=== PATIENT | male | born 1955 | race Caucasian/White ===

== ENCOUNTER 2025-04-07 13:09 | Outpatient (CLI) | payer MEDICARE, SELFPAY ==
--- NOTE | ~2025-04-07 | US_ITS ---
EXAMINATION: US abdomen complete, 04/07/2025 13:12 CDT HISTORY: thrombocytopenia COMPARISON: None Technique: Mendoza-scale and color Doppler images were obtained. Findings: LIVER: Lliver contours intact, no lesions. Normal echogenicity. . GALLBLADDER/BILIARY: Gallbladder polyp measures 4 x 5 mm, no cholelithiasis or pericholecystic fluid. CBD normal. [employer] sign negative. PANCREAS: Pancreas limited by bowel gas. SPLEEN: Unremarkable, no splenomegaly. KIDNEYS: The renal cortices are intact with no solid masses or calculi, no hydronephrosis. Right Kidney: Right kidney 11.0 x 3.8 x 4.2 cm. Right kidney superior pole simple cyst 4.8 x 3.8 cm. Left Kidney: Left kidney 12.6 x 3.2 x 4.3 cm. Left kidney superior pole simple cyst 1.4 x 1.1 cm. AORTA: Normal caliber aorta. IVC: Unremarkable. FREE FLUID: None. Impression: 1. Gallbladder polyp. 2. Simple appearing bilateral renal cysts Reviewed, dictated and finalized at location P. Impression: 1. Gallbladder polyp. 2. Simple appearing bilateral renal cysts
== END 2025-04-07 13:10 | disposition home or self-care (01) ==
LOC: GOSHIMG 13:10
PROVIDERS: PCP Emergency Medicine; Visit Provider Emergency Medicine
DX: K82.4 Cholesterolosis of gallbladder (principal); N28.1 Cyst of kidney, acquired; D69.6 Thrombocytopenia, unspecified
CPT/HCPCS: 76700